=== PATIENT | female | born 1940 | race Caucasian/White ===

== ENCOUNTER 2016-03-25 15:35 | Emergency (ER) | payer MEDICARE, OTHER ==
[2016-03-25 15:43] VITALS: TEMP 98.7; BMI 36.8
[2016-03-25] MEDS ORDERED: NS 1,000 ML IV ONE (15:47)
[2016-03-25] MEDS ORDERED: ALPRAZOLAM 0.5 MG TAB PO ONE (15:47)
--- NOTE | 2016-03-25 15:49 | EDPRACDOC ---
- General Information Chief Complaint: Generalized Weakness Stated Complaint: DIZZINESS Time Seen by Provider: 03/25/16 15:43 Information Source: Patient Mode Of Arrival: Car Home Medications: Home Medications Aspirin [Aspir 81] 81 mg PO DAILY 04/24/12 Atenolol [Tenormin] 25 mg PO QHS 04/24/12 Alprazolam [Xanax] 0.25 mg PO Q8H PRN 02/01/14 Atenolol [Tenormin] 50 mg PO QAM 12/01/15 CYANOCOBALAMIN (Vitamin B-12) [Vitamin B-12] 1,000 mcg IM .MONTHLY 02/12/16 Vitamin B Complex 1 tab PO DAILY 02/14/16 Meclizine HCl 25 mg PO TID #30 tablet 03/25/16 Triamcinolone [Kenalog, Aristocort] 1 gm TOP BID PRN 03/25/16 Venlafaxine HCl ER [Effexor XR] 37.5 mg PO DAILY 03/25/16 Allergies/Adverse Reactions: Allergies Allergy/AdvReac Type Severity Reaction Status Date / Time No Known Allergies Allergy Verified 03/25/16 15:43 - History of Present 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 SHE HAS BEEN EVALUATED FOR PALPITATIONS IN THE LAST 2 MONTHS. SHE STATES SHE FELT DIZZY TODAY WHICH LASTED LESS THAN 30 MINUTES AND RESOLVED. SHE FELT ROOM SPINNING. NO CHEST PAIN. NO HEADACHE ED Past Medical History - Patient Medical History Cardiac History: Reports: Hypertension GI/ History: Reports: Gastroesophageal Reflux, Diverticulosis Musculoskeletal History: Reports: Arthritis Psychological History: Reports: Anxiety. Denies: Depression, Substance Use Disorder Systemic History: Reports: Cancer (breast), Diabetes ("pre diabetic") Surgical History: Reports: Hysterectomy, Other (BREAST BIOPSY, PAROTID GLAND BENIGN TUMOR REMOVAL) - Family Medical History Reports: Hypertension (MOTHER), Diabetes (BROTHER, FATHER), Cancer (MOTHER BREAST CA), Cardiac Disorders (FATHER AT 61 WITH [place]). Denies: Stroke - Social Medical History Smoking Status: Never smoker Social History: Denies: Substance Use Disorder - Physical Exam Last recorded Vital Signs: Last Vital Signs Temp 98.7 F 03/25/16 15:40 Pulse 75 01/09/17 15:40 Resp 20 03/25/16 15:40 BP 188/74 H 03/25/16 15:40 Pulse Ox 96 03/25/16 15:40 Oxygen Pulse Oxygen Saturation 96 O2 Device Room Air Oxygen Flow Rate Fraction of Inspired Oxygen ( FIO2) - Results 03/25/16 15:48 03/25/16 15:48 - EKG EKG #1 EKG Time: 17:17 -: Yes EKG interpreted by me Rate: bpm: 76 [place]: Normal Rhythm: NSR Block: 1, AVB Hypertrophy: None ST: Normal Decision Time to Discharge: 17:21 - Departure Yes I personally saw and evaluated the patient. Disposition: Home Condition: Good Final Diagnosis: Vertigo Instructions: Vertigo (ED) Education/Counseling Given To: Patient Education/Counseling Given Regarding: Diagnosis, Treatment, Prognosis, Follow Up Referrals: Roberta Vigil NUTRITION CONSULTANT [Primary Care Provider] - One Week Prescriptions: Meclizine HCl 25 mg PO TID #30 tablet
[2016-03-25 16:01] LABS: AUTOMATED BASOPHIL 0.9 % (0-2); AUTOMATED EOSINOPHIL 1.8 % (0-5); AUTOMATED LYMPH 21.4 % (17-44); AUTOMATED MONOCYTE 5.8 % (3-10); AUTOMATED NEUTROPHIL 70.1 % (45-76); MPV 7.3 fL (7.4-10.4)
[2016-03-25 16:11] LABS: BLOOD UREA NITROGEN 15 MG/DL (7-17); CALCULATED OSMOLALITY 279 MOs/Kg (270-290); CHLORIDE 103 mEq/L (98-107); GLUCOSE 150 MG/DL (70-99); SODIUM LEVEL 143 mEq/L (137-146); TOTAL PROTEIN 7.3 G/DL (6.3-8.2)
[2016-03-25 16:14] LABS: PARTIAL THROMB. TIME 23.6 SEC (22-35)
--- NOTE | 2016-03-25 16:15 | DIRPT ---
CLINICAL DATA: Shortness of Breath, vertigo, dizziness EXAM: PORTABLE CHEST 1 VIEW COMPARISON: 02/14/2016 FINDINGS: Borderline cardiomegaly. No acute infiltrate or pleural effusion. No pulmonary edema. Minimal degenerative changes thoracic spine. IMPRESSION: No active disease. Electronically Signed By: Abhinav Porter M.D. On: 03/25/2016 16:12
--- NOTE | 2016-03-25 16:47 | DIRPT ---
CLINICAL DATA: Altered mental status. EXAM: CT HEAD WITHOUT CONTRAST TECHNIQUE: Contiguous axial images were obtained from the base of the skull through the vertex without intravenous contrast. COMPARISON: CT scan of December 10, 2008. FINDINGS: The bony calvarium appears intact. Mild diffuse cortical atrophy is noted. Mild chronic ischemic white matter disease is noted. No mass effect or midline shift is noted. Ventricular size is within normal limits. There is no evidence of mass lesion, hemorrhage or acute infarction. IMPRESSION: Mild diffuse cortical atrophy. Mild chronic ischemic white matter disease. No acute intracranial abnormality seen. Electronically Signed By: Sammy Matamoros Jr, M.D. On: 03/25/2016 16:45
[2016-03-25 18:22] VITALS: BP 173/65; PULSE 82
== END 2016-03-25 18:21 | disposition home or self-care (01) ==
LOC: ED 15:35
DX: R42 Dizziness and giddiness (principal)
CPT/HCPCS: 36415; 70450; 71010; 80053; 84484; 85025; 85610; 85730; 93005; 96360; 96361; 99284; A9270; J3490